=== PATIENT | male | born 1990 | race Two or more races ===

== ENCOUNTER 2024-06-05 14:05 | Emergency (ER) | payer OTHER ==
[~2024-06-05] VITALS: Ht 175.3 cm; Wt 104.3 kg
[2024-06-05 16:55] VITALS: BP 131/81; TEMP 98; O2SAT 16
== END 2024-06-05 16:55 | disposition home or self-care (01) ==
LOC: ER 14:25
DX: M54.2 Cervicalgia (principal); M54.6 Pain in thoracic spine; R07.89 Other chest pain; V43.52XA Car driver injured in collision with other type car in traffic accident, initial encounter; Y93.89 Activity, other specified; Y92.488 Other paved roadways as the place of occurrence of the external cause; Y99.8 Other external cause status
CPT/HCPCS: 71250-TC; 72125-TC